=== PATIENT | female | born 1955 | race Two or more races ===

== ENCOUNTER 2024-07-10 13:11 | Outpatient (AMB) | payer MEDICARE, MEDICAID, SELFPAY ==
[2024-07-10 13:25] VITALS: BP 151/83; PULSE 71; RESP 17; TEMP 36.6; O2SAT 94; BMI 30.9
--- NOTE | 2024-07-10 13:25 | PD.ORTHCLVIS ---
Vital signs 07/10/24 13:25 Height 1.52 m Height Method Measured Weight 71.809 kg Weight Measurement Method Standing Scale BMI 30.9 BP 151/83 H Blood Pressure Source Automatic Cuff Blood Pressure Location Right Upper Arm Position Sitting Respiration 17 Pulse 71 Pulse Source Monitor Temp 97.8 F Temp Source Temporal Artery Scan Pulse Oximetry (%) 94 L Oxygen Delivery Method Room Air Med/Allergies Allergies & Medications Allergies No Known Allergies Allergy (Verified 07/10/24 13:26) Medication Reconciliation aspirin 81 mg tablet,delayed release 81 mg PO QDAY 12/08/20 [History Confirmed 07/10/24] glipizide 5 mg tablet 5 mg PO QDAY 12/08/20 [History Confirmed 07/10/24] metformin 1,000 mg tablet 1,000 mg PO BID 12/08/20 [History Confirmed 07/10/24] metoprolol tartrate 25 mg tablet 25 mg PO BID 12/08/20 [History Confirmed 07/10/24] sitagliptin phosphate 100 mg tablet (Januvia) 100 mg PO QDAY 12/08/20 [History Confirmed 07/10/24] losartan 100 mg tablet 50 mg (1/2 x 100 mg) PO QDAY #0 tabs 12/12/20 [Rx Confirmed 07/10/24] verapamil 240 mg 24 hr capsule,extended release 120 mg (1/2 x 240 mg) PO QDAY #0 caps 12/12/20 [Rx Confirmed 07/10/24] amoxicillin 125 mg chewable tablet 250 mg PO BID 07/10/24 [History Confirmed 07/10/24] fexofenadine 180 mg tablet 180 mg PO QDAY 07/10/24 [History Confirmed 07/10/24] ibuprofen 600 mg tablet 600 mg PO Q8H PRN 07/10/24 [History Confirmed 07/10/24] meloxicam 7.5 mg tablet 7.5 mg PO QDAY #45 tabs 07/10/24 [Rx] Exam Exam Patient is in no acute distress and is cooperative with the examination today. Breathing is nonlabored. In no respiratory distress. Bilateral extremities were evaluated and demonstrates sensation intact to light touch. Palpable pedal pulses are present. No significant edema is present. Bilateral hips were examined. The patient has no pain with log roll of the hips. Internal rotation to 30 degrees and external rotation to 30 degrees is painless. Negative FADIR. The left knee was examined. The left knee is in varus alignment. Range of motion from 0-115 degrees. Knee is stable to varus and valgus as well as AP translation with <5mm. Patient has a negative McMurrays. There is no pain with patellofemoral compression and no crepitus noted. The knee is tender to palpation medially. The right knee was also examined. The right knee is in varus alignment. Range of motion from 0-120 degrees. Knee is stable to varus and valgus as well as AP translation with <5mm. Patient has a negative McMurrays. There is no pain with patellofemoral compression and no crepitus noted. The knee is tender to palpation medially. Assessment and Plan Problem List (1) Degenerative arthritis of knee, bilateral: Status: Acute Plan: Patient is a 68-year-old female with bilateral knee pain and bilateral knee arthritis. We discussed different treatment options. I would like to see her weightbearing x-rays. We discussed different treatment options depending on what this shows. I likely will continue with conservative treatment with injections at the next visit Advanced Care Planning Discussion Advance care planning discussed with:: patient Office Procedures GNS Level of Care Nursing/Assessment Patient Status: Initial/New Patient Nursing Assessment/Reassesment: Medication Reconciliation and Update PMH in EMR Coordination of Care: Complex Care and Chronic Disease 1-5, Consent,records obtained, informed consent, Education Simp Pt/Fam, 1 Ins Authorization, Lab and Imaging orders and Results/Orders obtained New Patient Charge New Patient Point Assignment: [id number] New Patient Point Charge: GROUP [employer] DEPARTMENT HEAD Level 3 (2509-1996) MA Intake Visit Data Collection New Patient or Established: Established Patient (seen at [facility] within 3 years) Reason for Visit:: BILAT KNEE PAIN Seen by Clinical Staff ONLY (RN/MA): No Product Support Manager Required: No PCP or OBGYN visit in last 3 months: Yes Hx Now: No Do You Feel Safe at Home: Yes Authorities Contacted: N/A Questionairres Past Medical History Past Medical History Have you ever been diagnosed with any of the following: Cardiology Problems Hypercholesterolemia: Yes Congestive Heart Failure: No Hypertension: Yes Respiratory Problems Chronic Obstructive Pulmonary Disease (COPD): No Genital/Urinary Problems Renal Disease: No Endocrine Problems Diabetes Mellitus Type 1: No Diabetes Mellitus Type 2: Yes Other Problems Falls: No MRSA: No Cancer: No Subjective Visit Visit for: new patient and knee (BILATERAL ) Immunization / Flu Flu Vaccine in the Last 12 Months: No Flu Vaccine Exclusion Criteria: Refused by Patient History of Present Illness Chief complaint: Bilateral knee pain Patient is a pleasant 68-year-old female with bilateral knee pain of approximately equal severity. She has tried ibuprofen only. She has had bilateral knee pain for Over a year. The pain is primarily medially on both knees. She has not tried any injections. Pain Pain level (0-10): 10 Pain duration: 1 YEAR Pain location: anterior and posterior Pain quality: sharp Pain timing: night Associated signs & symptoms: stiffness Ambulatory data Ambulatory device: none Walking distance (minutes): 1 Treatments Number of previous injections: 0 Number of Physical Therapy sessions: 0 Improvement with NSAIDS: n/a Review of Systems Review of Systems: All systems negative unless otherwise noted in HPI.
--- NOTE | 2024-07-10 13:26 | XR_ITS ---
Examination: Bilateral knees 2 views Right lateral knee left lateral knee 2 views Bilateral axial knees single view TECHNIQUE: Bilateral AP knees standing single view, bilateral PA knees standing flexion single view Standing right lateral knee left lateral knee 2 views Bilateral axial knees single view total 5 views Date and time: July 10, 2024 1331 hours INDICATIONS: Bilateral knee pain one year. FINDINGS: Mild narrowing medial joint space right and left knee Bilateral mild osteoarthritis patellofemoral joints No fractures or dislocation IMPRESSION: Mild narrowing medial joint spaces bilaterally Bilateral mild osteoarthritis patellofemoral joints
== END 2024-07-10 13:31 | disposition home or self-care (01) ==
LOC: HODSRG 13:11
PROVIDERS: PCP Family Medicine; Referring Provider Family Medicine; Supervising Provider Orthopaedic Surgery Adult Reconstructive Orthopaedic Surgery; Visit Provider Orthopaedic Surgery Adult Reconstructive Orthopaedic Surgery
DX: M17.0 Bilateral primary osteoarthritis of knee (principal); M25.562 Pain in left knee; M25.561 Pain in right knee; E11.9 Type 2 diabetes mellitus without complications; I10 Essential (primary) hypertension; E78.00 Pure hypercholesterolemia, unspecified
CPT/HCPCS: 73564; 99203; G0463

== ENCOUNTER 2024-07-29 14:03 | Outpatient (AMB) | payer MEDICARE, MEDICAID, SELFPAY ==
[2024-07-29 14:16] VITALS: BP 134/76; PULSE 73; RESP 18; TEMP 36.1; O2SAT 94; BMI 31.2
--- NOTE | 2024-07-29 14:16 | ORTHONT_ITS ---
Vital signs 07/29/24 14:16 Height 1.52 m Height Method Stated Weight 72.121 kg Weight Measurement Method Standing Scale BMI 31.2 BP 134/76 H Blood Pressure Source Automatic Cuff Blood Pressure Location Right Upper Arm Position Sitting Respiration 18 Pulse 73 Pulse Source Monitor Temp 96.9 F Pulse Oximetry (%) 94 L Oxygen Delivery Method Room Air Med/Allergies Allergies & Medications Allergies No Known Allergies Allergy (Verified 07/29/24 14:20) Medication Reconciliation aspirin 81 mg tablet,delayed release 81 mg PO QDAY 12/08/20 [History Confirmed 07/29/24] glipizide 5 mg tablet 5 mg PO QDAY 12/08/20 [History Confirmed 07/29/24] metformin 1,000 mg tablet 1,000 mg PO BID 12/08/20 [History Confirmed 07/29/24] metoprolol tartrate 25 mg tablet 25 mg PO BID 12/08/20 [History Confirmed 07/29/24] sitagliptin phosphate 100 mg tablet (Januvia) 100 mg PO QDAY 12/08/20 [History Confirmed 07/29/24] losartan 100 mg tablet 50 mg (1/2 x 100 mg) PO QDAY #0 tabs 12/12/20 [Rx Confirmed 07/29/24] verapamil 240 mg 24 hr capsule,extended release 120 mg (1/2 x 240 mg) PO QDAY #0 caps 12/12/20 [Rx Confirmed 07/29/24] amoxicillin 125 mg chewable tablet 250 mg PO BID 07/10/24 [History Confirmed 07/29/24] fexofenadine 180 mg tablet 180 mg PO QDAY 07/10/24 [History Confirmed 07/29/24] ibuprofen 600 mg tablet 600 mg PO Q8H PRN 07/10/24 [History Confirmed 07/29/24] meloxicam 7.5 mg tablet 7.5 mg PO QDAY #45 tabs 07/10/24 [Rx Confirmed 07/29/24] Exam Exam Patient is in no acute distress and is cooperative with the examination today. Breathing is nonlabored. In no respiratory distress. Bilateral extremities were evaluated and demonstrates sensation intact to light touch. Palpable pedal pulses are present. No significant edema is present. Bilateral hips were examined. The patient has no pain with log roll of the hips. Internal rotation to 30 degrees and external rotation to 30 degrees is painless. Negative FADIR. The left knee was examined. The left knee is in varus alignment. Range of motion from 0-115 degrees. Knee is stable to varus and valgus as well as AP translation with <5mm. Patient has a negative McMurrays. There is no pain with almonte llofemoral compression and no crepitus noted. The knee is tender to palpation medially. The right knee was also examined. The right knee is in varus alignment. Range of motion from 0-120 degrees. Knee is stable to varus and valgus as well as AP translation with <5mm. Patient has a negative McMurrays. There is no pain with patellofemoral compression and no crepitus noted. The knee is tender to palp ation medially. Xrays demonstrate bilateral mild joint space narrowing Assessment and Plan Problem List (1) Degenerative arthritis of knee, bilateral: Status: Acute Plan: Patient is a 68-year-old female with bilateral knee pain and bilateral knee arthritis. She has mild arthritis And we will thus continue with conservative treatment Recommend knee cortisone injections as patient would like to proceed with conservative treatment at this time. The risks and benefits of the procedure were reviewed with the patient and patient gave verbal consent to continue with the procedure. Procedure: performed by Dr. Browning Using sterile technique the Bilateral knees were thoroughly prepped with alcohol, and approximately 1 cc of Kenalog 40 mg/mL and 4 cc of 1% lidocaine was injected into each knee without resistance into the medial tibial femoral joint space. The patient tolerated the procedure. Advanced Care Planning Discussion Advance care planning discussed with:: patient Office Procedures GNS Level of Care Nursing/Assessment Patient Status: Established Patient Nursing Assessment/Reassesment: Medication Reconciliation, Update PMH in EMR and Vital Signs Coordination of Care: Complex Care and Chronic Disease 1-5, Education Complex Pt/Fam, Consent,records obtained, informed consent, Results/Orders obtained and Staff clarify orders Special Needs: Language special needs Established Patient Charge Established Patient Point Assignment: 95 Established Patient Point Charge: EP Level 3 (80-115) Surgical Proc/IM SQ injection Major Surgical Procedure: Yes (BILATERAL KNEE INJECTIONS) Medication Given Medication Given Medication Given: Yes Documented Dose Given: 8 Route: Infiitration Medication Given Medication Given Medication Given: Yes Documented Dose Given: 2 Route: Infiitration Office Meds Xylocaine 10 mg/mL (1 %) injection solution Performing Provider: Frank Browning MD Performing Location: [facility] Administered by: Frank Browning MD on 07/29/24 14:28 Dose Route Admin Location Dispensed Lot Number Expiration Date [facility] [employer]ader 40 mL Infiltration 40 mL [id number] 06/19/27 76031-975-48 NEISHA ARMENTA triamcinolone acetonide 40 mg/mL suspension for injection Performing Provider: Frank Browning MD Performing Location: [facility] Administered by: Frank Browning MD on 07/29/24 14:28 Dose Route Admin Location Dispensed Lot Number Expiration Date [facility] [employer] 80 mg intra-articular 2 mL [id number] 09/17/25 91360-714-80 DAREN ROBBINS MA Intake Visit Data Collection New Patient or Established: Established Patient (seen at [facility] within 3 years) Reason for Visit:: F/U KNEE PAIN & XRAYS Seen by Clinical Staff ONLY (RN/MA): No Verbal consent obtained for Telemed visit?: No PCP or OBGYN visit in last 3 months: Yes Hx Now: No Do You Feel Safe at Home: Yes Authorities Contacted: N/A Questionairres Past Medical History Past Medical History Have you ever been diagnosed with any of the following: Cardiology Problems Hypercholesterolemia: Yes Congestive Heart Failure: No Hypertension: Yes Respiratory Problems Chronic Obstructive Pulmonary Disease (COPD): No Genital/Urinary Problems Renal Disease: No Endocrine Problems Diabetes Mellitus Type 1: No Diabetes Mellitus Type 2: Yes Other Problems Falls: No MRSA: No Cancer: No Subjective Visit Visit for: new patient and knee (BILATERAL ) Immunization / Flu Flu Vaccine in the Last 12 Months: No Flu Vaccine Exclusion Criteria: Refused by Patient and No Exclusion Criteria History of Present Illness Chief complaint: Bilateral knee pain Patient is a pleasant 68-year-old female with bilateral knee pain of approximately equal severity. She has tried ibuprofen only. She has had bilateral knee pain for Over a year. The pain is primarily medially on both knees. She has not tried any injections. Personal History Red flag PMH: BMI BMI Counceling provided: Yes Pain Pain level (0-10): 10 Pain duration: 1 YEAR Pain location: inside (medial), outside (lateral), anterior and posterior Pain quality: sharp, dull and aching Pain timing: night, increases with activity and stairs Associated signs & symptoms: stiffness and none Ambulatory data Ambulatory device: none Walking distance (minutes): 1 Treatments Number of previous injections: 0 Improvement with previous injections: No Number of Physical Therapy sessions: 0 Improvement with PT: No Improvement with NSAIDS: n/a Review of Systems Review of Systems: All systems negative unless otherwise noted in HPI.
== END 2024-07-29 14:29 | disposition home or self-care (01) ==
LOC: HODSRG 14:03
PROVIDERS: PCP Family Medicine; Referring Provider Family Medicine; Supervising Provider Orthopaedic Surgery Adult Reconstructive Orthopaedic Surgery; Visit Provider Orthopaedic Surgery Adult Reconstructive Orthopaedic Surgery
DX: M17.0 Bilateral primary osteoarthritis of knee (principal); M25.562 Pain in left knee; M25.561 Pain in right knee; I10 Essential (primary) hypertension; E78.00 Pure hypercholesterolemia, unspecified; E11.9 Type 2 diabetes mellitus without complications
CPT/HCPCS: 20610; 99213; J3301; J3490; G0463

== ENCOUNTER 2024-12-11 08:32 | Outpatient (AMB) | payer MEDICARE, MEDICAID, SELFPAY ==
--- NOTE | 2024-12-11 09:16 | PD.ORTHCLVIS ---
Vital signs 12/11/24 09:17 Height 1.52 m Height Method Stated Weight 70.874 kg Weight Measurement Method Standing Scale BMI 30.7 BP 161/94 H Blood Pressure Source Automatic Cuff Blood Pressure Location Left Upper Arm Position Sitting Respiration 18 Pulse 72 Pulse Source Monitor Temp 97.5 F Temp Source Temporal Artery Scan Pulse Oximetry (%) 93 L Oxygen Delivery Method Room Air Med/Allergies Allergies & Medications Allergies No Known Allergies Allergy (Verified 12/11/24 09:18) Medication Reconciliation metformin 1,000 mg tablet 1,000 mg PO BID 12/08/20 [History Confirmed 12/11/24] metoprolol tartrate 25 mg tablet 25 mg PO BID 12/08/20 [History Confirmed 12/11/24] sitagliptin phosphate 100 mg tablet (Januvia) 100 mg PO QDAY 12/08/20 [History Confirmed 12/11/24] losartan 100 mg tablet 50 mg (1/2 x 100 mg) PO QDAY #0 tabs 12/12/20 [Rx Confirmed 12/11/24] verapamil 240 mg 24 hr capsule,extended release 120 mg (1/2 x 240 mg) PO QDAY #0 caps 12/12/20 [Rx Confirmed 12/11/24] amoxicillin 125 mg chewable tablet 250 mg PO BID 07/10/24 [History Confirmed 12/11/24] fexofenadine 180 mg tablet 180 mg PO QDAY 07/10/24 [History Confirmed 12/11/24] ibuprofen 600 mg tablet 600 mg PO Q8H PRN 07/10/24 [History Confirmed 12/11/24] meloxicam 7.5 mg tablet 7.5 mg PO QDAY #45 tabs 07/10/24 [Rx Confirmed 12/11/24] Assessment and Plan Problem List (1) Degenerative arthritis of knee, bilateral: Status: Acute Advanced Care Planning Discussion Advance care planning discussed with:: patient Office Procedures GNS Level of Care Nursing/Assessment Patient Status: Established Patient Nursing Assessment/Reassesment: Medication Reconciliation, Update PMH in EMR and Vital Signs Coordination of Care: Complex Care and Chronic Disease 1-5, Education Complex Pt/Fam, Consent,records obtained, informed consent, Results/Orders obtained and Staff clarify orders Established Patient Charge Established Patient Point Assignment: 95 Established Patient Point Charge: EP Level 3 (80-115) MA Intake Visit Data Collection New Patient or Established: Established Patient (seen at [facility] within 3 years) Reason for Visit:: F/U KNEE PAIN & XRAYS Seen by Clinical Staff ONLY (RN/MA): No Verbal consent obtained for Telemed visit?: No PCP or OBGYN visit in last 3 months: Yes Hx Now: No Do You Feel Safe at Home: Yes Authorities Contacted: N/A Questionairres Past Medical History Past Medical History Have you ever been diagnosed with any of the following: Cardiology Problems Hypercholesterolemia: Yes Congestive Heart Failure: No Hypertension: Yes Respiratory Problems Chronic Obstructive Pulmonary Disease (COPD): No Genital/Urinary Problems Renal Disease: No Endocrine Problems Diabetes Mellitus Type 1: No Diabetes Mellitus Type 2: Yes Other Problems Falls: No MRSA: No Cancer: No Subjective Visit Visit for: follow up visit and knee Immunization / Flu Flu Vaccine in the Last 12 Months: No Flu Vaccine Exclusion Criteria: Refused by Patient and No Exclusion Criteria History of Present Illness Chief complaint: Bilateral knee pain Personal History Red flag PMH: BMI BMI Counceling provided: Yes Pain Pain level (0-10): 10 Pain duration: 1 YEAR Pain location: inside (medial), outside (lateral), anterior and posterior Pain quality: sharp, dull and aching Pain timing: night, increases with activity and stairs Associated signs & symptoms: stiffness and none Ambulatory data Ambulatory device: none Walking distance (minutes): 1 Treatments Number of previous injections: 0 Improvement with previous injections: No Number of Physical Therapy sessions: 0 Improvement with PT: No Improvement with NSAIDS: n/a Review of Systems Review of Systems: All systems negative unless otherwise noted in HPI.
[2024-12-11 09:17] VITALS: BP 161/94; PULSE 72; RESP 18; TEMP 36.4; O2SAT 93; BMI 30.7
== END 2024-12-11 09:39 | disposition home or self-care (01) ==
LOC: HODSRG 08:32
PROVIDERS: PCP Family Medicine; Referring Provider Family Medicine; Supervising Provider Orthopaedic Surgery Adult Reconstructive Orthopaedic Surgery; Visit Provider Orthopaedic Surgery Adult Reconstructive Orthopaedic Surgery
DX: M25.562 Pain in left knee (principal); M25.561 Pain in right knee; M17.0 Bilateral primary osteoarthritis of knee; I10 Essential (primary) hypertension; E11.9 Type 2 diabetes mellitus without complications; Z79.84 Long term (current) use of oral hypoglycemic drugs
CPT/HCPCS: 99213; G0463